=== PATIENT | male | born 1940 | race Caucasian/White ===

== ENCOUNTER 2021-01-01 09:00 | Outpatient (CLI) | payer MEDICARE, OTHER | END 2021-01-01 09:01 | disposition home or self-care (01) | LOC: SCSMRI 09:00 | PROVIDERS: ATTEND Internal Medicine | DX: M47.22 Other spondylosis with radiculopathy, cervical region (principal) | CPT/HCPCS: 72141 ==

== ENCOUNTER 2021-01-29 14:35 | Outpatient (CLI) | payer MEDICARE, OTHER | END 2021-01-29 14:36 | disposition home or self-care (01) | LOC: SCSRAD 14:35 | PROVIDERS: ATTEND Anesthesiology Pain Medicine | DX: M43.12 Spondylolisthesis, cervical region (principal); M47.812 Spondylosis without myelopathy or radiculopathy, cervical region | CPT/HCPCS: 72052 ==

== ENCOUNTER 2023-07-15 14:09 | Outpatient (CLI) | payer MEDICARE, OTHER | END 2023-07-15 14:10 | disposition home or self-care (01) | LOC: SCSMRI 14:09 | PROVIDERS: ATTEND Internal Medicine | DX: R41.3 Other amnesia (principal); I67.89 Other cerebrovascular disease | CPT/HCPCS: 70551 ==